=== PATIENT | male | born 1965 | race Caucasian/White ===

== ENCOUNTER → 2021-12-19 | Outpatient (RCR) | payer MEDICARE, MEDICAID | END | disposition home or self-care (01) | LOC: CR 11-25 07:43 | PROVIDERS: ATTEND Internal Medicine Cardiovascular Disease | DX: Z29.8 Encounter for other specified prophylactic measures (principal); Z95.5 Presence of coronary angioplasty implant and graft | CPT/HCPCS: 93798 ==

== ENCOUNTER → 2022-01-18 | Outpatient (RCR) | payer MEDICARE, MEDICAID | END | disposition home or self-care (01) | LOC: CR 12-21 06:14 | PROVIDERS: ATTEND Internal Medicine Cardiovascular Disease | DX: Z29.8 Encounter for other specified prophylactic measures (principal); Z95.5 Presence of coronary angioplasty implant and graft | CPT/HCPCS: 93798 ==

== ENCOUNTER 2022-02-08 09:53 | Outpatient (RCR) | payer MEDICARE, MEDICAID | END 2022-02-18 | disposition home or self-care (01) | LOC: CR 09:53 | PROVIDERS: ATTEND Internal Medicine Cardiovascular Disease | DX: Z29.8 Encounter for other specified prophylactic measures (principal); Z95.5 Presence of coronary angioplasty implant and graft | CPT/HCPCS: 93798 ==

== ENCOUNTER 2022-03-17 13:58 | Outpatient (RCR) | payer MEDICARE, MEDICAID | END 2022-03-21 | disposition home or self-care (01) | LOC: CR 13:58 | PROVIDERS: ATTEND Internal Medicine Cardiovascular Disease | DX: Z29.8 Encounter for other specified prophylactic measures (principal); Z95.5 Presence of coronary angioplasty implant and graft | CPT/HCPCS: 93798 ==

== ENCOUNTER 2022-05-17 15:34 | Outpatient (RCR) | payer MEDICARE, MEDICAID | END 2022-05-18 | disposition home or self-care (01) | LOC: CR3 15:34 | PROVIDERS: ATTEND Internal Medicine Cardiovascular Disease | DX: Z29.8 Encounter for other specified prophylactic measures (principal) ==

== ENCOUNTER 2022-06-16 15:35 | Outpatient (RCR) | payer MEDICARE, MEDICAID | END 2022-06-18 | disposition home or self-care (01) | LOC: CR3 15:35 | PROVIDERS: ATTEND Internal Medicine Cardiovascular Disease | DX: Z29.8 Encounter for other specified prophylactic measures (principal) ==

== ENCOUNTER 2022-06-19 11:47 | Outpatient (RCR) | payer MEDICARE, MEDICAID | END 2022-08-18 | disposition home or self-care (01) | LOC: CR3 11:47 | PROVIDERS: ATTEND Internal Medicine Cardiovascular Disease | DX: Z29.8 Encounter for other specified prophylactic measures (principal) ==